=== PATIENT | female | born 1985 | race Caucasian/White ===

== ENCOUNTER 2018-12-24 17:32 | Emergency (ER) | payer OTHER ==
[2018-12-24] MEDS ORDERED: cephALEXin 250 MG CAPSULE PO STA (18:55)
--- NOTE | 2018-12-24 19:05 | ED Physician Documentation ---
History of Present Illness - Stated complaint Stated Complaint: R TOE SWELLING - Chief complaint Chief Complaint: Ext Problem - History obtained from History obtained from: Patient - History of Present Illness Timing: How many days ago (several) Pain level max: 6 Pain level now: 4 - Additonal information Additional information: 33-year-old female with redness and swelling to the right fourth toe for the past several days. Worse with palpation and walking. Nothing makes it better. No injury. Review of Systems Constitutional: denies: Fever : denies: Now EGA Musculoskeletal: denies: Neck pain, Back pain PD PAST MEDICAL HISTORY - Past Medical History Cardiovascular: None Respiratory: None Endocrine/Autoimmune: None GI: None [employer] SURFACE: None : None HEENT: None Psych: None Musculoskeletal: None Derm: None - Past Surgical History Past Surgical History: Yes General: Other - Present Medications Home Medications: Ambulatory Orders Medication Instructions Recorded Confirmed Control Pills 03/29/15 03/29/15 Multivitamin [Multivitamins] 1 tab PO DAILY 03/29/15 03/29/15 Nitrofurantoin Monohyd/M-Cryst 100 mg PO BID #14 capsule 03/29/15 [Macrobid 100 mg Capsule] Phenazopyridine [Pyridium] 200 mg PO TID 6 Days tablet 03/29/15 Cephalexin [Keflex] 500 mg PO Q6H #28 capsule 12/24/18 - Allergies Allergies/Adverse Reactions: Allergies Allergy/AdvReac Type Severity Reaction Status Date / Time No Known Drug Allergies Allergy Verified 08/23/16 01:49 - Social History Does the pt smoke?: No Smoking Status: Never smoker Does the pt drink ETOH?: No Does the pt have substance abuse?: No - Immunizations Immunizations are current?: Yes - POLST Patient has POLST: No PD ED PE NORMAL - Vitals Vital signs reviewed: Yes - General General: Alert and oriented X 3, No acute distress - HEENT HEENT: Moist mucous membranes - Neck Neck: Supple, no meningeal sign - Cardiac Cardiac: RRR - Respiratory Respiratory: No respiratory distress, Clear bilaterally - Abdomen Abdomen: Soft, Non tender, Non distended - Derm Derm: Warm and dry - Extremities Extremities: Other (R 4th toe - redness, swelling to the lateral toe. no abscess. no bony tenderness. small blister present) - Neuro Neuro: Alert and oriented X 3 - Psych Psych: Normal mood, Normal affect Results - Vitals Vitals: Vital Signs - 24 hr 12/24/18 12/24/18 17:41 19:21 Temperature 36.6 C 36.7 C Heart Rate 76 77 Respiratory 16 18 Rate Blood Pressure 107/74 110/64 O2 Saturation 100 100 Oxygen O2 Source Room air PD MEDICAL DECISION MAKING - ED course Complexity details: considered differential, d/w patient ED course: 33-year-old female with a right fourth toe cellulitis. Will place on antibiotics. She is well-appearing, nontoxic. Afebrile. Patient counseled regarding signs and symptoms for which I believe and urgent re-evaluation would be necessary. Patient with good understanding of and agreement to plan and is comfortable going home at this time This document was made in part using voice recognition software. While efforts are made to proofread this document, sound alike and grammatical errors may occur. Departure - Departure Disposition: 01 Home, Self Care Clinical Impression: Cellulitis Qualifiers: Site of cellulitis: extremity Site of cellulitis of extremity: toe Laterality: right Qualified Code(s): L03.031 - Cellulitis of right toe Condition: Good Instructions: ED Infec Skin Cellulitis Follow-Up: BRANDI JUSTICE MD [Primary Care Provider] - Within 3 Days (for wound check) Prescriptions: Cephalexin [Keflex] 500 mg PO Q6H #28 capsule Comments: Take all antibiotics until gone. Return if you worsen. Follow-up with your doctor in 3 days for wound check Discharge Date/Time: 12/24/18 19:21
[2018-12-24 19:22] VITALS: BP 110/64
== END 2018-12-24 19:21 | disposition home or self-care (01) ==
LOC: ED 17:32
DX: L03.031 Cellulitis of right toe (principal)
CPT/HCPCS: 99283; A9270